=== PATIENT | female | born 1950 | race African-American/Black ===

== ENCOUNTER 2018-08-13 07:51 | Day surgery (SDC) | payer OTHER ==
[2018-08-11 10:18] VITALS: BMI 34.0
[2018-08-13] MEDS ORDERED: PROPOFOL 20 ML ONE ×2 (09:26)
[2018-08-13] MEDS ORDERED: LIDOCAINE HCL/PF 2% SDV 5ML VIAL ONE (09:26)
[2018-08-13 12:43] VITALS: TEMP 98.3
[2018-08-13 13:33] VITALS: BP 139/81; PULSE 94
--- NOTE | 2018-08-15 15:30 | PATH ---
Surgical Pathology Report Patient Name: GRETA LUCERO [facility]. Rec. #: [id number] /Age/Gender: 1950 (Age: 68) / F Account: [id number] Location: [facility] Taken: 08/13/2018 Received: 08/13/2018 Reported: 08/15/2018 Physicians: Justin Peacock M.D. Specimen(s) Received A: BX POLYP LEFT COLON B: BX POLYP DISTAL COLON Clinical History Screening Postoperative diagnosis: Polyps Final Diagnosis A. LEFT COLON, POLYP, BIOPSY: TUBULAR ADENOMA. B. DISTAL LEFT COLON, POLYP, BIOPSY: INFLAMMATORY/GRANULATION TISSUE POLYP. Electronically Signed Sofie Hilton M.D. Gross Description A. Received in formalin, labeled "biopsy polyp left colon" is a rainey, irregular portion of soft tissue measuring 0.4 cm. in greatest dimension. The specimen is submitted in toto in one cassette. B. Received in formalin, labeled "biopsy polyp distal left colon" is a rainey, irregular portion of soft tissue measuring 0.3 cm. in greatest dimension. The specimen is submitted in toto in one cassette. /08/14/2018 saudi08/14/2018
== END 2018-08-13 10:55 | disposition home or self-care (01) ==
LOC: FASU-ENDO 07:51
PROVIDERS: ATTEND Internal Medicine Gastroenterology
PROC: 0DBM8ZX Excision of Descending Colon, Via Natural or Artificial Opening Endoscopic, Diagnostic (ICD-10-PCS; 2018-08-13)
PROC: 0DBK8ZX Excision of Ascending Colon, Via Natural or Artificial Opening Endoscopic, Diagnostic (ICD-10-PCS; principal; 2018-08-13 09:27)
PROC: 0DBM8ZX Excision of Descending Colon, Via Natural or Artificial Opening Endoscopic, Diagnostic (ICD-10-PCS; 2018-08-13 09:27)
DX: Z12.11 Encounter for screening for malignant neoplasm of colon (principal); D12.4 Benign neoplasm of descending colon; K63.5 Polyp of colon
CPT/HCPCS: 82962; 88305-TC